=== PATIENT | female | born 1955 | race Caucasian/White ===

== ENCOUNTER 2017-10-25 10:23 | Day surgery (SDC) | payer BC, MEDICARE ==
[~2017-10-25 10:23] MED LIST: ADV50500 INH; ALB0.5UD IH; CALC1TAB41; GLUC-131 PO; IBUP-24 PO; LEVO100T PO; METF500T PO
[2017-10-25] MEDS ORDERED: CELE-193 PO (12:14)
[2017-10-25] MEDS ORDERED: FLUT1AER (12:15)
[2017-10-25] MEDS ORDERED: ACET-2119 PO (12:15)
[2017-10-25] MEDS ORDERED: LIDOcaine 2% 5ml jelly ONE (12:17)
[2017-10-25] MEDS ORDERED: hydrocortisone 1% cream 28gm TP ONE (12:49)
== END 2017-10-25 13:10 | disposition home or self-care (01) ==
LOC: WOUND CARE 10:23
PROVIDERS: ATTEND Surgery
DX: L97.322 Non-pressure chronic ulcer of left ankle with fat layer exposed (principal); I83.023 Varicose veins of left lower extremity with ulcer of ankle
CPT/HCPCS: 73620; 97597; A6021; A6206; A6441

== ENCOUNTER 2017-11-03 10:32 | Day surgery (SDC) | payer BC, MEDICARE ==
[~2017-11-03 10:32] MED LIST changes: +ACET-2119 PO; -CALC1TAB41; +CELE-193 PO; +FLUT1AER; -IBUP-24 PO; -METF500T PO
[2017-11-03] MEDS: LIDOcaine 2% 5ml jelly ONE (11:49)
[2017-11-03] MEDS: hydrocortisone 1% cream 28gm TP ONE (12:42)
== END 2017-11-03 12:41 | disposition home or self-care (01) ==
LOC: WOUND CARE 10:32
PROVIDERS: ATTEND Surgery
DX: L97.322 Non-pressure chronic ulcer of left ankle with fat layer exposed (principal); I83.023 Varicose veins of left lower extremity with ulcer of ankle
CPT/HCPCS: 97597; A6021; A6196; A6206; A6441

== ENCOUNTER 2017-11-10 10:53 | Day surgery (SDC) | payer BC, MEDICARE ==
[2017-11-10] MEDS ORDERED: LIDOcaine 2% 5ml jelly ONE (16:03)
== END 2017-11-10 13:05 | disposition home or self-care (01) ==
LOC: WOUND CARE 10:53
PROVIDERS: ATTEND Surgery
DX: L97.322 Non-pressure chronic ulcer of left ankle with fat layer exposed (principal); I83.023 Varicose veins of left lower extremity with ulcer of ankle; I87.2 Venous insufficiency (chronic) (peripheral)
CPT/HCPCS: 87070; 87075; 87077; 87102; 87176; 87186; 97597; A6021; A6206; A6446

== ENCOUNTER 2017-11-17 11:00 | Day surgery (SDC) | payer BC, MEDICARE ==
[2017-11-17] MEDS ORDERED: LIDOcaine 2% 5ml jelly ONE (11:46)
[2017-11-17] MEDS ORDERED: LEVO750T21 PO (14:36)
== END 2017-11-17 12:50 | disposition home or self-care (01) ==
LOC: WOUND CARE 11:00
PROVIDERS: ATTEND Surgery
DX: L97.322 Non-pressure chronic ulcer of left ankle with fat layer exposed (principal); I83.023 Varicose veins of left lower extremity with ulcer of ankle; I87.2 Venous insufficiency (chronic) (peripheral)
CPT/HCPCS: 97597; A6021; A6206; A6446

== ENCOUNTER 2017-11-24 10:31 | Day surgery (SDC) | payer BC, MEDICARE ==
[~2017-11-24 10:31] MED LIST changes: +LEVO750T21 PO
[2017-11-24] MEDS ORDERED: LIDOcaine/PRILOcaine 5gm cream TP ONE (11:07)
== END 2017-11-24 12:02 | disposition home or self-care (01) ==
LOC: WOUND CARE 10:31
PROVIDERS: ATTEND Surgery
DX: L97.322 Non-pressure chronic ulcer of left ankle with fat layer exposed (principal); I83.023 Varicose veins of left lower extremity with ulcer of ankle; I87.2 Venous insufficiency (chronic) (peripheral)
CPT/HCPCS: 97597; A6021; A6206; A6446

== ENCOUNTER 2017-12-08 10:45 | Day surgery (SDC) | payer BC, MEDICARE ==
[2017-12-08] MEDS ORDERED: LIDOcaine/PRILOcaine 5gm cream TP ONE (12:43)
== END 2017-12-08 13:37 | disposition home or self-care (01) ==
LOC: WOUND CARE 10:45
PROVIDERS: ATTEND Surgery
DX: L97.322 Non-pressure chronic ulcer of left ankle with fat layer exposed (principal); I83.023 Varicose veins of left lower extremity with ulcer of ankle; I87.2 Venous insufficiency (chronic) (peripheral)
CPT/HCPCS: 97597; A6021; A6206; A6222; A6446

== ENCOUNTER 2017-12-15 10:29 | Day surgery (SDC) | payer BC, MEDICARE ==
[2017-12-15] MEDS ORDERED: LIDOcaine/PRILOcaine 5gm cream TP ONE (12:21)
== END 2017-12-15 11:55 | disposition home or self-care (01) ==
LOC: WOUND CARE 10:29
PROVIDERS: ATTEND Surgery
DX: L97.322 Non-pressure chronic ulcer of left ankle with fat layer exposed (principal); I83.023 Varicose veins of left lower extremity with ulcer of ankle; I87.2 Venous insufficiency (chronic) (peripheral)
CPT/HCPCS: 15271; A6209; A6222; Q4101; A6250; A6441

== ENCOUNTER 2017-12-22 10:39 | Outpatient (CLI) | payer BC, MEDICARE | END 2017-12-22 12:19 | disposition home or self-care (01) | LOC: WOUND CARE 10:39 | PROVIDERS: ATTEND Surgery | DX: L97.322 Non-pressure chronic ulcer of left ankle with fat layer exposed (principal); I83.023 Varicose veins of left lower extremity with ulcer of ankle; I87.2 Venous insufficiency (chronic) (peripheral) | CPT/HCPCS: 29581; A6021; A6206; A6441 ==

== ENCOUNTER 2017-12-30 10:06 | Day surgery (SDC) | payer BC, MEDICARE ==
[~2017-12-30 10:06] MED LIST changes: -LEVO750T21 PO
[2017-12-30] MEDS ORDERED: LIDOcaine/PRILOcaine 5gm cream TP ONE (11:11)
[2017-12-30] MEDS ORDERED: hydrocortisone 1% cream 28gm TP ONE (12:10)
== END 2017-12-30 12:19 | disposition home or self-care (01) ==
LOC: WOUND CARE 10:06
PROVIDERS: ATTEND Surgery
DX: L97.322 Non-pressure chronic ulcer of left ankle with fat layer exposed (principal); I83.023 Varicose veins of left lower extremity with ulcer of ankle; I87.2 Venous insufficiency (chronic) (peripheral)
CPT/HCPCS: 15271; A6222; Q4101; A6250; A6441

== ENCOUNTER 2018-01-06 10:41 | Outpatient (CLI) | payer BC, MEDICARE | END 2018-01-06 12:00 | disposition home or self-care (01) | LOC: WOUND CARE 10:41 | PROVIDERS: ATTEND Surgery | DX: L97.322 Non-pressure chronic ulcer of left ankle with fat layer exposed (principal); I83.023 Varicose veins of left lower extremity with ulcer of ankle; I87.2 Venous insufficiency (chronic) (peripheral) | CPT/HCPCS: 29581; A6222; A6441 ==

== ENCOUNTER 2018-01-13 10:26 | Day surgery (SDC) | payer MEDICARE, BC ==
[2018-01-13] MEDS ORDERED: LIDOcaine/PRILOcaine 5gm cream TP ONE (11:16)
[2018-01-13] MEDS ORDERED: hydrocortisone 1% cream 28gm TP ONE (12:05)
== END 2018-01-13 12:17 | disposition home or self-care (01) ==
LOC: WOUND CARE 10:26
PROVIDERS: ATTEND Surgery
DX: L97.322 Non-pressure chronic ulcer of left ankle with fat layer exposed (principal); I83.023 Varicose veins of left lower extremity with ulcer of ankle; I87.2 Venous insufficiency (chronic) (peripheral)
CPT/HCPCS: 15271; A6206; A6209; Q4101; A6250; A6441

== ENCOUNTER 2018-01-20 10:38 | Outpatient (CLI) | payer MEDICARE, BC ==
[2018-01-20] MEDS ORDERED: hydrocortisone 1% cream 28gm TP ONE (11:49)
== END 2018-01-20 12:10 | disposition home or self-care (01) ==
LOC: WOUND CARE 10:38
PROVIDERS: ATTEND Surgery
DX: L97.322 Non-pressure chronic ulcer of left ankle with fat layer exposed (principal); I83.023 Varicose veins of left lower extremity with ulcer of ankle; I87.2 Venous insufficiency (chronic) (peripheral)
CPT/HCPCS: 29581; A6206; A6441

== ENCOUNTER 2018-01-27 10:38 | Outpatient (CLI) | payer MEDICARE, BC | END 2018-01-27 11:31 | disposition home or self-care (01) | LOC: WOUND CARE 10:38 | PROVIDERS: ATTEND Surgery | DX: L97.322 Non-pressure chronic ulcer of left ankle with fat layer exposed (principal); I83.023 Varicose veins of left lower extremity with ulcer of ankle; I87.2 Venous insufficiency (chronic) (peripheral) | CPT/HCPCS: 29581; A6206; A6441 ==

== ENCOUNTER 2018-02-03 10:22 | Day surgery (SDC) | payer MEDICARE, BC ==
[2018-02-03] MEDS ORDERED: LIDOcaine/PRILOcaine 5gm cream TP ONE (11:02)
[2018-02-03] MEDS ORDERED: hydrocortisone 1% cream 28gm TP ONE (16:45)
== END 2018-02-03 12:03 | disposition home or self-care (01) ==
LOC: WOUND CARE 10:22
PROVIDERS: ATTEND Surgery
DX: L97.322 Non-pressure chronic ulcer of left ankle with fat layer exposed (principal); I83.023 Varicose veins of left lower extremity with ulcer of ankle; I87.2 Venous insufficiency (chronic) (peripheral)
CPT/HCPCS: 97597; A6222; A6441

== ENCOUNTER 2018-02-10 10:20 | Day surgery (SDC) | payer MEDICARE, BC ==
[2018-02-10] MEDS ORDERED: LIDOcaine/PRILOcaine 5gm cream TP ONE (11:30)
[2018-02-10] MEDS ORDERED: hydrocortisone 1% cream 28gm TP ONE (12:40)
== END 2018-02-10 12:19 | disposition home or self-care (01) ==
LOC: WOUND CARE 10:20
PROVIDERS: ATTEND Surgery
DX: L97.322 Non-pressure chronic ulcer of left ankle with fat layer exposed (principal); I83.023 Varicose veins of left lower extremity with ulcer of ankle; I87.2 Venous insufficiency (chronic) (peripheral)
CPT/HCPCS: 97597; A6021; A6206; A6212; A6446

== ENCOUNTER 2018-02-24 10:47 | Day surgery (SDC) | payer MEDICARE, BC ==
[2018-02-24] MEDS ORDERED: LIDOcaine/PRILOcaine 5gm cream TP ONE (11:08)
[2018-02-24] MEDS ORDERED: hydrocortisone 1% cream 28gm TP ONE (11:38)
== END 2018-02-24 11:55 | disposition home or self-care (01) ==
LOC: WOUND CARE 10:47
PROVIDERS: ATTEND Surgery
DX: L97.322 Non-pressure chronic ulcer of left ankle with fat layer exposed (principal); I83.023 Varicose veins of left lower extremity with ulcer of ankle; I87.2 Venous insufficiency (chronic) (peripheral)
CPT/HCPCS: 97597; A6021; A6206; A6441

== ENCOUNTER 2018-03-03 10:35 | Day surgery (SDC) | payer MEDICARE, BC ==
[2018-03-03] MEDS ORDERED: LIDOcaine/PRILOcaine 5gm cream TP ONE (11:13)
== END 2018-03-03 11:45 | disposition home or self-care (01) ==
LOC: WOUND CARE 10:35
PROVIDERS: ATTEND Surgery
DX: I83.023 Varicose veins of left lower extremity with ulcer of ankle (principal); L97.322 Non-pressure chronic ulcer of left ankle with fat layer exposed; I87.2 Venous insufficiency (chronic) (peripheral)
CPT/HCPCS: 97597; A6222; A6021

== ENCOUNTER 2018-03-17 10:32 | Outpatient (CLI) | payer MEDICARE, BC | END 2018-03-17 11:50 | disposition home or self-care (01) | LOC: WOUND CARE 10:32 | PROVIDERS: ATTEND Surgery | DX: I83.023 Varicose veins of left lower extremity with ulcer of ankle (principal); L97.322 Non-pressure chronic ulcer of left ankle with fat layer exposed; I87.2 Venous insufficiency (chronic) (peripheral) | CPT/HCPCS: 29581; A6021; A6206; A6441 ==

== ENCOUNTER 2018-03-31 10:28 | Outpatient (CLI) | payer MEDICARE, BC ==
[2018-03-31] MEDS ORDERED: hydrocortisone 1% cream 28gm TP ONE (11:28)
--- NOTE | 2018-03-31 12:00 | NUR ---
Patient ambulated independently from [facility] and was admitted to outpatient wound care for physician visit with Keven Arauz MD. Dressing removed, wound cleanse. Patient assessed for changes in conditions, medications and medical history. 1115 - Dr. Arauz at bedside accompanied by RN. Wound assessed by MD. Plan of care discussed with patient. Dressings placed per MD orders. Pt instructed to elevate legs at least 30 minutes 3 times a day or 10 minutes every 4 hours, also instructed check their toes. If they become purplish or blue, cool to the touch, numb or tingly, use a pair of scissors and carefully cut off the dressing. Call the Wound Center for an appointment to have the dressing reapplied. Pt instructed that decreased swelling in the legs and the potential for drainage from the wound may require them to have to schedule visits twice weekly, progressing to weekly as the swelling decreases in their legs. Pt instructed that if dressings become loose, wrinkled or falls down and if they are experiencing any pain or discomfort under their dressing cut the dressing off and call the Wound Center to have it reapplied. Pt instructed that the wrap needs to be kept dry. They may bath at a sink or there are devices designed to keep dressings dry these are available at most drug stores. If they choose to shower with a plastic bag taped over the wrap. Be sure to having another person available for assistance or placing towels on the floor of the shower or tub to eliminate the slick surface can reduce the risk of falls. Patient instructed on the signs and symptoms of infection and to call the Wound Center if any occur or to go to the ED if we are closed: Increased pain in wound Increase in drainage from the wound Redness in the skin surrounding the wound Bleeding from the wound Temperature of 101 or greater Patient instructed that the weight of their body puts a large amount of pressure on their wounds. This pressure keeps the new tissue from growing and inhibits new blood vessels from forming. Explained that, if they continue to bear weight on a body part that has a wound, the time it takes to heal the wound increases, the wound may get worse or the wound may not heal at all. Patient verbalized understanding of all discharge instructions and plan of care and ambulated independently out to [facility] in stable condition with no sign or symptom of distress at time of discharge.
== END 2018-03-31 11:44 | disposition home or self-care (01) ==
LOC: WOUND CARE 10:28 → EDSTATUS 10:30 → WOUND CARE 11:44
PROVIDERS: ATTEND Surgery
DX: I83.023 Varicose veins of left lower extremity with ulcer of ankle (principal); L97.322 Non-pressure chronic ulcer of left ankle with fat layer exposed; I87.2 Venous insufficiency (chronic) (peripheral)
CPT/HCPCS: 29581; A6021; A6206; A6441

== ENCOUNTER 2018-04-14 10:30 | Outpatient (CLI) | payer MEDICARE, BC ==
--- NOTE | 2018-04-14 12:30 | NUR ---
Patient ambulated independently from [facility] and was admitted to outpatient wound care for physician visit with Keven Arauz MD. Dressing removed, wound cleansed. Patient assessed for changes in conditions, medications and medical history. 1143 - Dr. Arauz at bedside accompanied by RN. Wound assessed by MD and is declared healed. Plan of care discussed with patient. Dressings placed per MD orders. Patient is discharged from the wound center to follow up on an as needed basis. Patient instructed on the signs and symptoms of infection and to call the Wound Center if any occur or to go to the ED if we are closed: Increased pain in wound Increase in drainage from the wound Redness in the skin surrounding the wound Bleeding from the wound Temperature of 101 or greater Patient instructed that the weight of their body puts a large amount of pressure on their wounds. This pressure keeps the new tissue from growing and inhibits new blood vessels from forming. Explained that, if they continue to bear weight on a body part that has a wound, the time it takes to heal the wound increases, the wound may get worse or the wound may not heal at all. Patient verbalized understanding of all discharge instructions and plan of care and ambulated independently out to [facility] in stable condition with no sign or symptom of distress at time of discharge.
== END 2018-04-14 11:55 | disposition home or self-care (01) ==
LOC: WOUND CARE 10:30 → EDSTATUS 10:30 → WOUND CARE 11:55
PROVIDERS: ATTEND Surgery
DX: I83.023 Varicose veins of left lower extremity with ulcer of ankle (principal); L97.322 Non-pressure chronic ulcer of left ankle with fat layer exposed; I87.2 Venous insufficiency (chronic) (peripheral)
CPT/HCPCS: A6021; A6206; A6212; G0463

== ENCOUNTER 2018-10-17 09:50 | Day surgery (SDC) | payer BC, MEDICARE ==
[2018-10-17] MEDS ORDERED: silver sulfadiazine cream 50gm TP ONE (10:29)
[2018-10-17] MEDS ORDERED: nystatin/triamcinolone cream 15gm TP ONE (10:32)
[2018-10-17] MEDS ORDERED: SULF1TAB49 PO (10:49)
--- NOTE | 2018-10-17 10:52 | NUR ---
Patient ambulated independently from [facility] and was admitted to outpatient wound care for new patient physician visit. Dressings removed, wound cleansed. Patient assessment completed with review of patient's medical history and current medications. 1028-Dr. Arauz at bedside accompanied by RN. Wound assessed, time-out performed by MD/RN. Wound debrided as detailed in the physician progress/procedure note. Plan of care discussed with patient. Dressings placed per MD orders. Patient instructed on the signs and symptoms of infection and to call the Wound Center if any occur or to go to the ED if we are closed: Increased pain in the wound Increase in drainage from the wound Redness in the skin surrounding the wound Bleeding from the wound Temperature of 101F or greater Patient instructed that the weight of their body puts a large amount of pressure on their wounds. This pressure keeps the new tissue from growing and inhibits new blood vessels from forming. Explained that, if they continue to bear weight on a body part that has a wound, the time it takes to heal the wound increases, the wound may get worse, or the wound may not heal at all. Patient verbalized understanding of all discharge instructions and plan of care. Patient ambulated independently out to [facility] in stable condition with no signs or symptoms of distress at time of discharge.
== END 2018-10-17 10:55 | disposition home or self-care (01) ==
LOC: WOUND CARE 09:50
PROVIDERS: ATTEND Surgery
DX: I83.023 Varicose veins of left lower extremity with ulcer of ankle (principal); L97.322 Non-pressure chronic ulcer of left ankle with fat layer exposed; I87.2 Venous insufficiency (chronic) (peripheral)
CPT/HCPCS: 87070; 87075; 87077; 87102; 97597; J7999; A4663; A6446

== ENCOUNTER 2018-10-26 11:14 | Day surgery (SDC) | payer OTHER, MEDICARE ==
[~2018-10-26 11:14] MED LIST changes: +SULF1TAB49 PO
[2018-10-26] MEDS ORDERED: hydrocortisone 1% cream 28gm TP ONE (12:42)
--- NOTE | 2018-10-26 15:30 | NUR ---
1100 Patient ambulated safely into [facility]. Patient admitted to outpatient wound care clinic for follow-up visit with physician. Patient placed in isolation per isolation protocol. Dressing removed, wound cleansed. Patient assessed for changes in conditions, medications and medical history. Patient showed no s/s of distress at time of assessment. 1200 at bedside accompanied by RN. Wounds assessed, time out performed and debridement done today as detailed in the physician progress/procedure note. Plan of care discussed with patient. Dressings placed per MD orders. Patient instructed on the signs and symptoms of infection and to call the Wound Center if any occur or to go to the ED if we are closed: Increased pain in wound Increase in drainage from the wound Redness in the skin surrounding the wound Bleeding from the wound Temperature of 101 or greater Patient instructed that the weight of their body puts a large amount of pressure on their wounds. This pressure keeps the new tissue from growing and inhibits new blood vessels from forming. Explained that, if they continue to bear weight on a body part that has a wound, the time it takes to heal the wound increases, the wound may get worse or the wound may not heal at all. Patient verbalized understanding of all discharge instructions and plan of care. Patient ambulated independently out to [facility] and is in stable condition with no sign or symptom of distress at time of discharge.
== END 2018-10-26 12:32 | disposition home or self-care (01) ==
LOC: WOUND CARE 11:14
PROVIDERS: ATTEND Surgery
DX: I83.023 Varicose veins of left lower extremity with ulcer of ankle (principal); L97.321 Non-pressure chronic ulcer of left ankle limited to breakdown of skin; I87.2 Venous insufficiency (chronic) (peripheral)
CPT/HCPCS: 97597; A4663; A6021; A6154; A6446

== ENCOUNTER 2018-11-02 10:50 | Day surgery (SDC) | payer OTHER, MEDICARE ==
[2018-11-02] MEDS ORDERED: LIDOcaine 2% 5ml jelly ONE (12:11)
[2018-11-02] MEDS ORDERED: hydrocortisone 1% cream 28gm TP ONE (12:51)
== END 2018-11-02 13:12 | disposition home or self-care (01) ==
LOC: WOUND CARE 10:50
PROVIDERS: ATTEND Surgery
DX: I83.023 Varicose veins of left lower extremity with ulcer of ankle (principal); L97.321 Non-pressure chronic ulcer of left ankle limited to breakdown of skin; I87.2 Venous insufficiency (chronic) (peripheral); J44.9 Chronic obstructive pulmonary disease, unspecified; Z96.651 Presence of right artificial knee joint
CPT/HCPCS: 97597; A6021; A6154; A6441

== ENCOUNTER 2018-11-09 10:40 | Day surgery (SDC) | payer OTHER, MEDICARE | END 2018-11-09 13:35 | disposition home or self-care (01) | LOC: WOUND CARE 10:40 | PROVIDERS: ATTEND Surgery | DX: I83.023 Varicose veins of left lower extremity with ulcer of ankle (principal); L97.321 Non-pressure chronic ulcer of left ankle limited to breakdown of skin; L03.116 Cellulitis of left lower limb; I87.2 Venous insufficiency (chronic) (peripheral); J44.9 Chronic obstructive pulmonary disease, unspecified; Z96.651 Presence of right artificial knee joint | CPT/HCPCS: 97597 ==

== ENCOUNTER 2018-11-09 10:48 | Day surgery (SDC) | payer OTHER, MEDICARE ==
[2018-11-09] MEDS ORDERED: hydrocortisone 1% cream 28gm TP ONE (13:01)
== END 2018-11-09 13:20 | disposition home or self-care (01) ==
LOC: WOUND CARE 10:48
PROVIDERS: ATTEND Surgery
DX: I83.023 Varicose veins of left lower extremity with ulcer of ankle (principal); L97.321 Non-pressure chronic ulcer of left ankle limited to breakdown of skin; I87.2 Venous insufficiency (chronic) (peripheral); J44.9 Chronic obstructive pulmonary disease, unspecified; Z96.651 Presence of right artificial knee joint
CPT/HCPCS: 97597; A4663; A6021; A6154; A6446

== ENCOUNTER 2018-11-16 10:44 | Day surgery (SDC) | payer OTHER, MEDICARE ==
[2018-11-16] MEDS ORDERED: LIDOcaine 2% 5ml jelly ONE (12:24)
[2018-11-16] MEDS ORDERED: hydrocortisone 1% cream 28gm TP ONE (13:37)
== END 2018-11-16 13:52 | disposition home or self-care (01) ==
LOC: WOUND CARE 10:44
PROVIDERS: ATTEND Surgery
DX: I83.023 Varicose veins of left lower extremity with ulcer of ankle (principal); L97.321 Non-pressure chronic ulcer of left ankle limited to breakdown of skin; L03.116 Cellulitis of left lower limb; I87.2 Venous insufficiency (chronic) (peripheral); J44.9 Chronic obstructive pulmonary disease, unspecified; Z96.651 Presence of right artificial knee joint
CPT/HCPCS: 97597; A4663; A6021; A6154; A6441

== ENCOUNTER 2018-11-22 10:30 | Day surgery (SDC) | payer OTHER, MEDICARE ==
[2018-11-22] MEDS ORDERED: LIDOcaine 2% 5ml jelly ONE ×2 (11:17→11:53)
[2018-11-22] MEDS ORDERED: hydrocortisone 1% cream 28gm TP ONE (11:56)
== END 2018-11-22 12:10 | disposition home or self-care (01) ==
LOC: WOUND CARE 10:30
PROVIDERS: ATTEND Surgery
DX: I83.023 Varicose veins of left lower extremity with ulcer of ankle (principal); L97.321 Non-pressure chronic ulcer of left ankle limited to breakdown of skin; L03.116 Cellulitis of left lower limb; I87.2 Venous insufficiency (chronic) (peripheral); J44.9 Chronic obstructive pulmonary disease, unspecified; Z96.651 Presence of right artificial knee joint
CPT/HCPCS: 87070; 87075; 87102; 87176; 87186; 97597; A4663; A6021; A6154

== ENCOUNTER 2018-11-30 10:33 | Day surgery (SDC) | payer OTHER, MEDICARE ==
[2018-11-30] MEDS ORDERED: LIDOcaine 2% 5ml jelly ONE (11:38)
[2018-11-30] MEDS ORDERED: hydrocortisone 1% cream 28gm TP ONE (13:12)
== END 2018-11-30 13:27 | disposition home or self-care (01) ==
LOC: WOUND CARE 10:33
PROVIDERS: ATTEND Surgery
DX: I83.023 Varicose veins of left lower extremity with ulcer of ankle (principal); L97.321 Non-pressure chronic ulcer of left ankle limited to breakdown of skin; L03.116 Cellulitis of left lower limb; I87.2 Venous insufficiency (chronic) (peripheral); J44.9 Chronic obstructive pulmonary disease, unspecified; Z96.651 Presence of right artificial knee joint
CPT/HCPCS: 15271; A6209; A6222; Q4101; 97597; A4663; A6021; A6154; A6250; A6441

== ENCOUNTER 2018-12-07 10:50 | Outpatient (CLI) | payer OTHER, MEDICARE ==
[2018-12-07] MEDS ORDERED: hydrocortisone 1% cream 28gm TP ONE (12:26)
== END 2018-12-07 12:44 | disposition home or self-care (01) ==
LOC: WOUND CARE 10:50
PROVIDERS: ATTEND Surgery
DX: I83.023 Varicose veins of left lower extremity with ulcer of ankle (principal); L97.321 Non-pressure chronic ulcer of left ankle limited to breakdown of skin; L03.116 Cellulitis of left lower limb; I87.2 Venous insufficiency (chronic) (peripheral); J44.9 Chronic obstructive pulmonary disease, unspecified; Z96.651 Presence of right artificial knee joint
CPT/HCPCS: 29581; A6222; A4663; A6441

== ENCOUNTER 2018-12-21 10:40 | Day surgery (SDC) | payer OTHER, MEDICARE ==
[2018-12-21] MEDS ORDERED: LIDOcaine 2% 5ml jelly ONE (11:26)
[2018-12-21] MEDS ORDERED: hydrocortisone 1% cream 28gm TP ONE (12:18)
== END 2018-12-21 12:30 | disposition home or self-care (01) ==
LOC: WOUND CARE 10:40
PROVIDERS: ATTEND Surgery
DX: I83.023 Varicose veins of left lower extremity with ulcer of ankle (principal); L97.321 Non-pressure chronic ulcer of left ankle limited to breakdown of skin; L03.116 Cellulitis of left lower limb; I87.2 Venous insufficiency (chronic) (peripheral); J44.9 Chronic obstructive pulmonary disease, unspecified; Z96.651 Presence of right artificial knee joint
CPT/HCPCS: 97597; A4663; A6021; A6441

== ENCOUNTER 2018-12-28 10:20 | Outpatient (CLI) | payer OTHER, MEDICARE ==
[2018-12-28] MEDS ORDERED: hydrocortisone 1% cream 28gm TP ONE (12:12)
== END 2018-12-28 12:30 | disposition home or self-care (01) ==
LOC: WOUND CARE 10:20 → EDSTATUS 10:30 → WOUND CARE 12:30
PROVIDERS: ATTEND Surgery
DX: I83.023 Varicose veins of left lower extremity with ulcer of ankle (principal); L97.321 Non-pressure chronic ulcer of left ankle limited to breakdown of skin; L03.116 Cellulitis of left lower limb; I87.2 Venous insufficiency (chronic) (peripheral); J44.9 Chronic obstructive pulmonary disease, unspecified; Z96.651 Presence of right artificial knee joint
CPT/HCPCS: 29581; 93971; A4663; A6021; A6154; A6441

== ENCOUNTER 2019-01-04 10:20 | Day surgery (SDC) | payer OTHER, MEDICARE ==
[2019-01-04] MEDS ORDERED: LIDOcaine 2% 5ml jelly ONE (11:18)
[2019-01-04] MEDS ORDERED: hydrocortisone 1% cream 28gm TP ONE (12:10)
== END 2019-01-04 12:26 | disposition home or self-care (01) ==
LOC: WOUND CARE 10:20
PROVIDERS: ATTEND Surgery
DX: I83.023 Varicose veins of left lower extremity with ulcer of ankle (principal); L97.321 Non-pressure chronic ulcer of left ankle limited to breakdown of skin; L03.116 Cellulitis of left lower limb; I87.2 Venous insufficiency (chronic) (peripheral); J44.9 Chronic obstructive pulmonary disease, unspecified; Z96.651 Presence of right artificial knee joint
CPT/HCPCS: 97597; A4663; A6021; A6154; A6441

== ENCOUNTER 2019-01-11 10:19 | Outpatient (CLI) | payer OTHER, MEDICARE ==
[2019-01-11] MEDS ORDERED: LIDOcaine 2% 5ml jelly ONE (11:00)
[2019-01-11] MEDS ORDERED: hydrocortisone 1% cream 28gm TP ONE (11:40)
== END 2019-01-11 11:51 | disposition home or self-care (01) ==
LOC: WOUND CARE 10:19 → EDSTATUS 10:30 → WOUND CARE 11:51
PROVIDERS: ATTEND Surgery
DX: I83.023 Varicose veins of left lower extremity with ulcer of ankle (principal); L97.321 Non-pressure chronic ulcer of left ankle limited to breakdown of skin; L03.116 Cellulitis of left lower limb; I87.2 Venous insufficiency (chronic) (peripheral); J44.9 Chronic obstructive pulmonary disease, unspecified; Z96.651 Presence of right artificial knee joint
CPT/HCPCS: 29581; A4663; A6021; A6154; A6441

== ENCOUNTER 2019-01-18 10:40 | Outpatient (CLI) | payer OTHER, MEDICARE | END 2019-01-18 12:05 | disposition home or self-care (01) | LOC: WOUND CARE 10:40 | PROVIDERS: ATTEND Surgery | DX: I83.023 Varicose veins of left lower extremity with ulcer of ankle (principal); L97.321 Non-pressure chronic ulcer of left ankle limited to breakdown of skin; L03.116 Cellulitis of left lower limb; I87.2 Venous insufficiency (chronic) (peripheral); J44.9 Chronic obstructive pulmonary disease, unspecified; Z96.651 Presence of right artificial knee joint | CPT/HCPCS: A4663; G0463 ==

== ENCOUNTER 2019-02-17 14:30 | Emergency (ER) | payer OTHER, MEDICARE ==
[~2019-02-17] VITALS: Ht 177.8 cm; Wt 99.0 kg
[2019-02-17 16:28] LABS: BASOPHILS % (AUTO) 0.6 % (0-1); EOSINOPHILS # (AUTO) 0.4 X10'3 (0-0.9); EOSINOPHILS % (AUTO) 7.6 % (0-6); HEMATOCRIT 35.2 % (35.0-45.0); HEMOGLOBIN 11.6 g/dl (12.0-16.0); LYMPHOCYTES # (AUTO) 0.9 X10'3 (1.1-4.8); LYMPHOCYTES % (AUTO) 16.9 % (21-51); MEAN CORPUSCULAR HEMOGLOBIN 28.8 PG (27.0-31.0); MEAN CORPUSCULAR HGB CONC 33.1 g/dL (33.0-36.5); MEAN CORPUSCULAR VOLUME 87.1 FL (78-98); MEAN PLATELET VOLUME 7.5 FL (7.4-10.4); MONOCYTES # (AUTO) 0.5 X10'3 (0-0.9); MONOCYTES % (AUTO) 8.7 % (2-12); NEUTROPHILS # (AUTO) 3.7 X10'3 (1.8-7.7); NEUTROPHILS % (AUTO) 66.2 % (42-75); PLATELET COUNT 363 X10'3 (140-440); RED BLOOD COUNT 4.04 X10'6 (4.20-5.60); RED CELL DISTRIBUTION WIDTH 13.8 % (11.5-14.5); WHITE BLOOD COUNT 5.6 X10'3 (4.5-11.0)
--- NOTE | 2019-02-17 16:29 | NUR ---
Low BP reading with cuff on upper arm, WNL BP reading with cuff on forearm.
[2019-02-17 16:42] LABS: ALANINE AMINOTRANSFERASE 11 U/L (12-78); ALBUMIN 3.2 G/DL (3.4-5.0); ALBUMIN/GLOBULIN RATIO 0.8 (1.1-1.5); ALKALINE PHOSPHATASE 103 IU/L (46-116); ANION GAP 7 (8-16); ASPARTATE AMINO TRANSFERASE 15 U/L (10-37); BILIRUBIN,TOTAL 0.2 MG/DL (0.1-1.0); BLOOD UREA NITROGEN 14 MG/DL (7-18); BUN/CREATININE RATIO 15.2 (6.6-38.0); CALCIUM 8.6 MG/DL (8.5-10.1); CHLORIDE 104 MMOL/L (99-107); CREATININE 0.92 MG/DL (0.40-0.90); GLUCOSE 104 MG/DL (70-104); POTASSIUM 4.2 MMOL/L (3.5-5.1); SODIUM 139 MMOL/L (135-145); TOTAL CARBON DIOXIDE 28.2 MMOL/L (24-32); TOTAL PROTEIN 7.1 G/DL (6.4-8.2); eGFR 61 ML/MIN
[2019-02-17 17:43] VITALS: BP 124/69
[2019-02-17] MEDS ORDERED: DOXY100C43 PO (18:05)
== END 2019-02-17 18:36 | disposition home or self-care (01) ==
LOC: ER 14:30
DX: L03.115 Cellulitis of right lower limb (principal); Z91.010 Allergy to peanuts; Z88.1 Allergy status to other antibiotic agents; Z79.899 Other long term (current) drug therapy
CPT/HCPCS: 36415; 73610; 80053; 85025; 85610; 93926; 93971; 99284

== ENCOUNTER 2019-06-12 15:39 | Outpatient (CLI) | payer OTHER, MEDICARE ==
[~2019-06-12] VITALS: Ht 177.8 cm; Wt 90.7 kg
[2019-06-12] MEDS ORDERED: ROSU5TAB PO (16:33)
[2019-06-12] MEDS ORDERED: GABA600T PO ×2 (16:36→16:45)
[2019-06-12] MEDS ORDERED: DULO-31 PO (16:36)
[2019-06-12] MEDS ORDERED: CHOL500061 PO (16:45)
[2019-06-12 16:57] LABS: BASOPHILS # (AUTO) 0.1 X10'3 (0-0.2); EOSINOPHILS # (AUTO) 0.5 X10'3 (0-0.9); EOSINOPHILS % (AUTO) 7.8 % (0-6); LYMPHOCYTES # (AUTO) 1.7 X10'3 (1.1-4.8); LYMPHOCYTES % (AUTO) 24.2 % (21-51); MEAN CORPUSCULAR HEMOGLOBIN 28.5 PG (27.0-31.0); MEAN CORPUSCULAR HGB CONC 33.2 g/dL (33.0-36.5); MEAN PLATELET VOLUME 7.9 FL (7.4-10.4); MONOCYTES # (AUTO) 0.5 X10'3 (0-0.9); NEUTROPHILS # (AUTO) 4.2 X10'3 (1.8-7.7); PRE OP HEMATOCRIT 37.3 % (35.0-45.0); PRE OP HEMOGLOBIN 12.4 g/dL (12.0-16.0); PRE OP PLATELET COUNT 374 X10'3 (140-440); RED BLOOD COUNT 4.34 X10'6 (4.20-5.60); RED CELL DISTRIBUTION WIDTH 15.2 % (11.5-14.5)
[2019-06-12 17:13] LABS: ALBUMIN 3.7 G/DL (3.4-5.0); ALBUMIN/GLOBULIN RATIO 0.9 (1.1-1.5); ALKALINE PHOSPHATASE 101 IU/L (46-116); BLOOD UREA NITROGEN 13 MG/DL (7-18); BUN/CREATININE RATIO 13.1 (6.6-38.0); CALCIUM 9.1 MG/DL (8.5-10.1); CHLORIDE 107 MMOL/L (99-107); CREATININE 0.99 MG/DL (0.40-0.90); PRE OP ALT 20 U/L (30-65); PRE OP ANION GAP 6 (8-16); PRE OP AST 17 U/L (10-37); PRE OP BILIRUB, TOTAL 0.2 MG/DL (0.0-1.0); PRE OP GLUCOSE 98 MG/DL (70-104); PRE OP POTASSIUM 4.4 MMOL/L (3.4-5.1); PRE OP SODIUM 142 MMOL/L (135-145); TOTAL CARBON DIOXIDE 28.9 MMOL/L (24-32); TOTAL PROTEIN 7.8 G/DL (6.4-8.2); eGFR 56 ML/MIN
[2019-06-19] MEDS ORDERED: famotidine 20mg tablet PO ONE (10:15)
[2019-06-19] MEDS ORDERED: ringers solution, lacted 1,000 ML IV SCH (10:15)
== END 2019-06-12 23:59 | disposition home or self-care (01) ==
LOC: PRE-OP 15:39 → EDSTATUS 06-19 12:15
PROVIDERS: ATTEND Orthopaedic Surgery
DX: Z01.818 Encounter for other preprocedural examination (principal); J98.4 Other disorders of lung; M17.12 Unilateral primary osteoarthritis, left knee
CPT/HCPCS: 36415; 71046; 80053; 84443; 85025; 86885; 86900; 86901; 87081

== ENCOUNTER 2019-06-16 13:51 | Emergency (ER) | payer OTHER, MEDICARE ==
[~2019-06-16] VITALS: Ht 177.8 cm; Wt 100.0 kg
[~2019-06-16 13:51] MED LIST changes: -ACET-2119 PO; -ADV50500 INH; -CELE-193 PO; +CHOL500061 PO; +DULO-31 PO; +GABA600T PO; -GLUC-131 PO; +ROSU5TAB PO; -SULF1TAB49 PO
[2019-06-16 13:52] VITALS: BP 186/81
[2019-06-16] MEDS ORDERED: ALBU8HFA PO (14:33)
[2019-06-16] MEDS ORDERED: AZIT-31 PO (14:33)
== END 2019-06-16 14:53 | disposition home or self-care (01) ==
LOC: ER 13:52
DX: B34.9 Viral infection, unspecified (principal); J44.1 Chronic obstructive pulmonary disease with (acute) exacerbation; Z88.1 Allergy status to other antibiotic agents; Z91.010 Allergy to peanuts; Z79.899 Other long term (current) drug therapy
CPT/HCPCS: 71045; 99283

== ENCOUNTER 2019-06-23 14:50 | Emergency (ER) | payer OTHER, MEDICARE ==
[~2019-06-23] VITALS: Ht 177.8 cm; Wt 91.0 kg
[2019-06-23 14:50] VITALS: BP 140/85
[~2019-06-23 14:50] MED LIST changes: +ALBU8HFA PO
[2019-06-23] MEDS ORDERED: PRED20TA PO (15:21)
[2019-06-23] MEDS ORDERED: DOXY100C76 PO (15:21)
== END 2019-06-23 15:34 | disposition home or self-care (01) ==
LOC: ER 14:50
DX: J44.1 Chronic obstructive pulmonary disease with (acute) exacerbation (principal); Z79.899 Other long term (current) drug therapy; Z91.010 Allergy to peanuts; Z88.1 Allergy status to other antibiotic agents
CPT/HCPCS: 99284

== ENCOUNTER 2019-10-23 05:59 | Observation (INO) | payer OTHER, MEDICARE ==
[2019-10-16 15:43] LABS: BASOPHILS # (AUTO) 0.1 X10'3 (0-0.2); BASOPHILS % (AUTO) 1.1 % (0-1); EOSINOPHILS # (AUTO) 0.4 X10'3 (0-0.9); EOSINOPHILS % (AUTO) 7.8 % (0-6); LYMPHOCYTES # (AUTO) 0.9 X10'3 (1.1-4.8); LYMPHOCYTES % (AUTO) 16.4 % (21-51); MEAN CORPUSCULAR HEMOGLOBIN 28.8 PG (27.0-31.0); MEAN CORPUSCULAR HGB CONC 32.6 g/dL (33.0-36.5); MEAN CORPUSCULAR VOLUME 88.3 FL (78-98); MEAN PLATELET VOLUME 7.6 FL (7.4-10.4); MONOCYTES # (AUTO) 0.5 X10'3 (0-0.9); MONOCYTES % (AUTO) 9.1 % (2-12); NEUTROPHILS # (AUTO) 3.7 X10'3 (1.8-7.7); NEUTROPHILS % (AUTO) 65.6 % (42-75); PRE OP HEMATOCRIT 39.4 % (35.0-45.0); PRE OP HEMOGLOBIN 12.9 g/dL (12.0-16.0); PRE OP PLATELET COUNT 400 X10'3 (140-440); RED BLOOD COUNT 4.46 X10'6 (4.20-5.60); RED CELL DISTRIBUTION WIDTH 14.2 % (11.5-14.5)
[2019-10-16 16:06] LABS: ALBUMIN 3.5 G/DL (3.4-5.0); ALBUMIN/GLOBULIN RATIO 0.8 (1.1-1.5); ALKALINE PHOSPHATASE 104 IU/L (46-116); BLOOD UREA NITROGEN 15 MG/DL (7-18); BUN/CREATININE RATIO 15.2 (6.6-38.0); CALCIUM 8.7 MG/DL (8.5-10.1); CHLORIDE 104 MMOL/L (99-107); CREATININE 0.99 MG/DL (0.40-0.90); PRE OP ALT 22 U/L (30-65); PRE OP ANION GAP 10 (8-16); PRE OP AST 18 U/L (10-37); PRE OP BILIRUB, TOTAL 0.4 MG/DL (0.0-1.0); PRE OP GLUCOSE 91 MG/DL (70-104); PRE OP POTASSIUM 3.9 MMOL/L (3.4-5.1); PRE OP SODIUM 140 MMOL/L (135-145); TOTAL CARBON DIOXIDE 26.4 MMOL/L (24-32); TOTAL PROTEIN 7.8 G/DL (6.4-8.2); eGFR 56 ML/MIN
[2019-10-23] VITALS (17 sets, daily range): BP systolic 90–120; BP diastolic 49–78
[~2019-10-23] VITALS: Ht 177.8 cm; Wt 103.8 kg
[~2019-10-23 05:59] MED LIST changes: -ALB0.5UD IH; -ALBU8HFA PO; +ALBUTEROL INH; -FLUT1AER; +FLUT1AER INH; -LEVO100T PO; +LEVO112T52 PO; +MESSAGE TO NURSING IV ONE; +acetaminophen 325mg tablet PO ONE; +albuterol 2.5 MG/3 ML nebule NEB ONE; +celeCOXIB 100mg capsule PO ONE; +famotidine 20mg tablet PO ONE; +gabapentin 300mg capsule PO ONE; +metoclopramide 5 mg/ml inj IV ONE; +oxyCODONE SR 10mg (sust. release) tab -2 tabs (20mg) PO ONE; +ringers solution, lacted 1,000 ML IV SCH; +tranexamic acid 1gm/0.7% sal. 100 ML IV ONE; +vancomycin 1,500 MG in NS 300ml IV soln IV ONE
[2019-10-23] MEDS ORDERED: cloNIDine hcl/PF 100mcg/ml inj ONE (06:49)
[2019-10-23] MEDS ORDERED: ketorolac trometh. 30mg/ml inj. ONE (06:49)
[2019-10-23] MEDS ORDERED: ROPIVAcaine 0.5% (5mg/ml) 30ml vial ONE (06:49)
[2019-10-23] MEDS ORDERED: vancomycin 1,000mg inj ONE (06:49)
[2019-10-23] MEDS ORDERED: epiNEPHrine 1 mg/ml inj ONE (06:49)
[2019-10-23] MEDS ORDERED: HYDROmorphone 1 mg/ml syringe IV PRN (07:05)
[2019-10-23] MEDS ORDERED: magnesium hydroxide 30ml (MOM) UD suspension PO PRN (07:05)
[2019-10-23] MEDS ORDERED: acetaminophen 325mg tablet PO PRN (07:05)
[2019-10-23] MEDS ORDERED: bisacodyl 10mg suppository rectal RC PRN (07:05)
[2019-10-23] MEDS ORDERED: diphenhydrAMINE 25mg capsule PO PRN ×2 (07:05)
[2019-10-23] MEDS ORDERED: ondansetron/PF 4mg/2ml inj IV PRN ×2 (07:05→08:45)
[2019-10-23] MEDS ORDERED: HYDROmorphone inj. 0.5 MG/0.5 ML DISP.SYRIN IV PRN (07:05)
[2019-10-23] MEDS ORDERED: ringers solution, lacted 1,000 ML IV SCH (08:41)
[2019-10-23] MEDS ORDERED: fentaNYL/PF 50MCG/1 ML 2ML syringe ONE (08:44)
[2019-10-23] MEDS ORDERED: MIDAZolam 1mg/ml 10ml vial ONE (08:44)
[2019-10-23] MEDS ORDERED: fentaNYL/PF 50MCG/1 ML 2ML syringe IV PRN ×2 (08:45)
[2019-10-23] MEDS ORDERED: morphine 4 MG/ML inj SYRINge IV PRN (08:45)
[2019-10-23] MEDS ORDERED: hydrALAZINE 20mg/ml inj. IV PRN (08:45)
[2019-10-23] MEDS ORDERED: morphine 2 MG/ML inj. syringe IV PRN (08:45)
[2019-10-23] MEDS ORDERED: labetalol 20mg/4ml (5mg/ml) syringe IV PRN (08:45)
[2019-10-23] MEDS ORDERED: ROPIVAcaine 0.2% (10 MG/5 ML) BOLUS INJECTION ADDCANAL PRN (09:35)
[2019-10-23] MEDS ORDERED: dexamethasone sod phosphate 4mg/ml inj. ONE (09:50)
--- NOTE | 2019-10-23 10:49 | NUR ---
Received from OR via [facility] BED WITH REVA , accompanied by Anesthesiologist ATTILA and report given by Anesthesiolgist. PATIENT WITH 18G PIV IN RIGHT UE RUNNING LR AT 100. VSSArina OCONNOR FOR LOW BODY TEMPERATURE. WILL CONTINUE TO ASSEES. LEFT KNEE WRAP IS CDI WITH NERVE BLOCK SITE AND ARAMIS VAC. + DP. 10L MASK ON WITH 100% SATURATIONS. Addendum: 10/23/19 at 1118 by Acosta Diaz RN, RN Amended: Links added.
[2019-10-23] MEDS: ROPIVAcaine 0.2%/PF PUMP/bolus 550 ML ADDCANAL SCH (11:30)
--- NOTE | 2019-10-23 11:49 | NUR ---
PATIENT TAKEN TO WITH ALL BELONGINGS AND HOOKED UP TO MONITORS IN ROOM AND REPORT GIVEN TO RN WHO HAS TAKEN OVER PATIENT CARE. BED LOW, CALL LIGHT IN REACH, VSS, DRESSINGS CDI. MORE MEADE PRESENT TO ACCEPT CARE . Addendum: 10/23/19 at 1210 by Acosta Diaz RN, RN Amended: Links added.
[2019-10-23] MEDS: potassium cl 20mEq in 1/2 NS 1,000 ML IV SCH ×3 (12:20→23:04)
[2019-10-23] MEDS ORDERED: tranexamic acid 1gm/0.7% sal. 100 ML IV ONE (14:00)
[2019-10-23] MEDS ORDERED: cefazolin/dext.iso 2gm/50ml 50 ML IV SCH (16:00)
[2019-10-23] MEDS ORDERED: CLINDAmcin 900mg/NS 50ml IVPB 50 ML IV ONE (16:00)
--- NOTE | 2019-10-23 18:05 | NUR ---
Patient in room ORTHO 4017. I have received report from MORE Quick and had the opportunity to ask questions and assume patient care.
[2019-10-23] MEDS: gabapentin 300mg capsule PO SCH ×2 (19:20→21:06)
[2019-10-23] MEDS: duloxetine 30mg CAPSULE.DR PO SCH (19:21)
[2019-10-23] MEDS: ascorbic acid 500mg tablet PO SCH (19:21)
[2019-10-23] MEDS ORDERED: VANCOMYCIN 1,500MG inj. 1,500 MG in normal saline 500ml IV soln 300 ML IV SCH (20:00)
[2019-10-23] MEDS: albuterol 2.5 MG/3 ML nebule NEB SCH (20:20)
[2019-10-23] MEDS: budesonide 0.5mg/2ml UD nebule IH SCH (20:21)
[2019-10-23] MEDS: sennosides 8.6mg tablet PO SCH (21:05)
[2019-10-24 02:00] VITALS: BP 117/57
[2019-10-24] MEDS: albuterol 2.5 MG/3 ML nebule NEB SCH ×4 (02:00→20:36)
[2019-10-24] MEDS: potassium cl 20mEq in 1/2 NS 1,000 ML IV SCH ×3 (05:14→23:04)
[2019-10-24] MEDS: oxyCODONE/APAP 10/325mg tablet PO PRN ×4 (05:15→21:51)
[2019-10-24 06:00] VITALS: BP 103/67
--- NOTE | 2019-10-24 06:26 | NUR ---
Problems reprioritized. Patient report given, questions answered & plan of care reviewed with MORE Sharpe.
[2019-10-24 06:55] LABS: BASOPHILS # (AUTO) 0.1 X10'3 (0-0.2); BASOPHILS % (AUTO) 0.9 % (0-1); EOSINOPHILS # (AUTO) 0.1 X10'3 (0-0.9); EOSINOPHILS % (AUTO) 1.1 % (0-6); HEMATOCRIT 31.5 % (35.0-45.0); HEMOGLOBIN 10.2 g/dl (12.0-16.0); LYMPHOCYTES # (AUTO) 0.8 X10'3 (1.1-4.8); LYMPHOCYTES % (AUTO) 11.1 % (21-51); MEAN CORPUSCULAR HEMOGLOBIN 28.5 PG (27.0-31.0); MEAN CORPUSCULAR HGB CONC 32.4 g/dL (33.0-36.5); MEAN CORPUSCULAR VOLUME 88.1 FL (78-98); MONOCYTES # (AUTO) 0.7 X10'3 (0-0.9); MONOCYTES % (AUTO) 10.4 % (2-12); NEUTROPHILS # (AUTO) 5.5 X10'3 (1.8-7.7); NEUTROPHILS % (AUTO) 76.5 % (42-75); PLATELET COUNT 285 X10'3 (140-440); RED BLOOD COUNT 3.57 X10'6 (4.20-5.60); WHITE BLOOD COUNT 7.2 X10'3 (4.5-11.0)
[2019-10-24 07:14] LABS: ANION GAP 9 (8-16); CHLORIDE 106 MMOL/L (99-107); POTASSIUM 4.3 MMOL/L (3.5-5.1); SODIUM 139 MMOL/L (135-145); TOTAL CARBON DIOXIDE 24.2 MMOL/L (24-32)
[2019-10-24] MEDS: budesonide 0.5mg/2ml UD nebule IH SCH ×2 (07:15→20:36)
[2019-10-24] MEDS: gabapentin 300mg capsule PO SCH ×5 (07:53→22:59)
[2019-10-24] MEDS: aspirin 325mg tablet PO SCH (07:54)
[2019-10-24] MEDS: ascorbic acid 500mg tablet PO SCH ×2 (07:54→21:16)
[2019-10-24] MEDS: duloxetine 30mg CAPSULE.DR PO SCH ×2 (07:54→21:17)
[2019-10-24] MEDS: atorvastatin 20mg tablet PO SCH (07:54)
[2019-10-24] MEDS: multivitamins, therapeutics tablet PO SCH (07:54)
[2019-10-24] MEDS: levoTHYROXINE 112mcg tablet PO SCH (07:54)
[2019-10-24 10:00] VITALS: BP 109/46
--- NOTE | 2019-10-24 11:05 | NUR ---
Spoke with patient. MD Love told patient this morning that he would put the discharge orders in but can stay another night. Patient was also not cleared by PT to go home.
--- NOTE | 2019-10-24 11:10 | NUR ---
Joint replacement consult: Pt PO 100% first regular diet meal. LBM 10/22. Labs WNL, and BMI 33 standing scale. No nutrition concerns at this time. Addendum: 10/24/19 at [address] Amended: Links added.
[2019-10-24 14:32] VITALS: BP 103/47
--- NOTE | 2019-10-24 15:27 | NUR ---
Patient does not want to be connected to IV fluids anymore, states she is urinating too often. Patient is tolerating/ drinking plenty of fluids.
[2019-10-24 18:00] VITALS: BP 129/58
--- NOTE | 2019-10-24 18:25 | NUR ---
Problems reprioritized. Patient report given, questions answered & plan of care reviewed with Waleska AGUERO .
[2019-10-24] MEDS: sennosides 8.6mg tablet PO SCH (21:17)
[2019-10-24] MEDS: celeCOXIB 100mg capsule PO SCH (21:28)
[2019-10-24 22:00] VITALS: BP 105/52
[2019-10-24] MEDS: ROPIVAcaine 0.2%/PF PUMP/bolus 550 ML ADDCANAL SCH (22:57)
[2019-10-25] MEDS: albuterol 2.5 MG/3 ML nebule NEB SCH ×2 (02:00→08:04)
[2019-10-25] MEDS: oxyCODONE/APAP 10/325mg tablet PO PRN ×3 (02:04→11:29)
[2019-10-25 06:00] VITALS: BP 134/50
[2019-10-25 06:25] LABS: BASOPHILS # (AUTO) 0.1 X10'3 (0-0.2); BASOPHILS % (AUTO) 1.2 % (0-1); EOSINOPHILS # (AUTO) 0.4 X10'3 (0-0.9); EOSINOPHILS % (AUTO) 6.8 % (0-6); HEMATOCRIT 31.3 % (35.0-45.0); HEMOGLOBIN 10.2 g/dl (12.0-16.0); LYMPHOCYTES % (AUTO) 16.8 % (21-51); MEAN CORPUSCULAR HGB CONC 32.5 g/dL (33.0-36.5); MONOCYTES # (AUTO) 0.8 X10'3 (0-0.9); MONOCYTES % (AUTO) 12.5 % (2-12); NEUTROPHILS # (AUTO) 3.8 X10'3 (1.8-7.7); NEUTROPHILS % (AUTO) 62.7 % (42-75); PLATELET COUNT 286 X10'3 (140-440); RED BLOOD COUNT 3.52 X10'6 (4.20-5.60); RED CELL DISTRIBUTION WIDTH 14.2 % (11.5-14.5)
[2019-10-25] MEDS: duloxetine 30mg CAPSULE.DR PO SCH (07:52)
[2019-10-25] MEDS: multivitamins, therapeutics tablet PO SCH (07:53)
[2019-10-25] MEDS: ascorbic acid 500mg tablet PO SCH (07:53)
[2019-10-25] MEDS: aspirin 325mg tablet PO SCH (07:53)
[2019-10-25] MEDS: celeCOXIB 100mg capsule PO SCH (07:53)
[2019-10-25] MEDS: atorvastatin 20mg tablet PO SCH (07:53)
[2019-10-25] MEDS: gabapentin 300mg capsule PO SCH ×2 (07:53→11:29)
[2019-10-25] MEDS: levoTHYROXINE 112mcg tablet PO SCH (07:53)
[2019-10-25] MEDS: budesonide 0.5mg/2ml UD nebule IH SCH (08:04)
[2019-10-25 10:00] VITALS: BP 105/61
--- NOTE | 2019-10-25 10:57 | NUR ---
Spoke with MD Love about increased in drainage found on the ARAMIS dressing and the new blister noted on the right of the incision, received orders to change the dressing and reinforce with an driss bandage. MD Love stated to send patient home after dressing change and instruct patient to call him if bleeding increases.
--- NOTE | 2019-10-25 12:30 | NUR ---
Patient ready for D/C. Belongings gathered and sent home with patient. PIV removed, cannula intact. ARAMIS dressing was changed and reinforced with an driss bandage. Provided patient with education and calling doctor Miles if bleeding starts again. Patient had medications at home.
== END 2019-10-25 12:30 | disposition home or self-care (01) ==
LOC: PAS 05:59 → ORTHO 4S 07:08
PROVIDERS: ADMIT Orthopaedic Surgery; ATTEND Orthopaedic Surgery
DX: Z03.818 Encounter for observation for suspected exposure to other biological agents ruled out (principal); M17.12 Unilateral primary osteoarthritis, left knee; E66.01 Morbid (severe) obesity due to excess calories; Z79.899 Other long term (current) drug therapy; Z68.32 Body mass index [BMI] 32.0-32.9, adult
CPT/HCPCS: 27447; 36415; 73560; 80051; 80053; 82948; 84443; 85025; 85610; 85730; 86870; 86885; 86900; 86901; 87081; 93005; 94640; 94760; 96365; 96366; 96367; 96375; 97110; 97116; 97161; 97530; A6454; C1713; C1776; G0378; J0171; J0735; J1100; J1885; J2250; J2765; J2795; J3010; J3370; J7040; J7120; U0003; 86902; 86905; A4215; A7000; J3480; J3490; J7626

== ENCOUNTER 2020-04-04 10:44 | Outpatient (CLI) | payer OTHER, MEDICARE ==
[~2020-04-04 10:44] MED LIST changes: -MESSAGE TO NURSING IV ONE; -acetaminophen 325mg tablet PO ONE; -albuterol 2.5 MG/3 ML nebule NEB ONE; -celeCOXIB 100mg capsule PO ONE; -famotidine 20mg tablet PO ONE; -gabapentin 300mg capsule PO ONE; -metoclopramide 5 mg/ml inj IV ONE; -oxyCODONE SR 10mg (sust. release) tab -2 tabs (20mg) PO ONE; -ringers solution, lacted 1,000 ML IV SCH; -tranexamic acid 1gm/0.7% sal. 100 ML IV ONE; -vancomycin 1,500 MG in NS 300ml IV soln IV ONE
[2020-04-04] MEDS ORDERED: LIDOcaine 2% 5ml jelly ONE (11:09)
== END 2020-04-04 23:59 | disposition home or self-care (01) ==
LOC: WOUND CARE 10:44
PROVIDERS: ATTEND Nurse Practitioner
DX: I70.243 Atherosclerosis of native arteries of left leg with ulceration of ankle (principal); L97.322 Non-pressure chronic ulcer of left ankle with fat layer exposed; E78.5 Hyperlipidemia, unspecified; E03.9 Hypothyroidism, unspecified; M19.90 Unspecified osteoarthritis, unspecified site; I87.2 Venous insufficiency (chronic) (peripheral); J44.9 Chronic obstructive pulmonary disease, unspecified; E07.9 Disorder of thyroid, unspecified; E66.01 Morbid (severe) obesity due to excess calories; M17.12 Unilateral primary osteoarthritis, left knee; Z79.899 Other long term (current) drug therapy; Z96.651 Presence of right artificial knee joint; Z68.25 Body mass index [BMI] 25.0-25.9, adult
CPT/HCPCS: 11042; 11045

== ENCOUNTER 2021-02-21 19:02 | Emergency (ER) | payer MEDICARE, BC ==
[~2021-02-21] VITALS: Ht 177.8 cm; Wt 81.8 kg
[2021-02-21 19:31] VITALS: BP 133/73
[2021-02-21] MEDS ORDERED: ketorolac tromethamine 15mg/ml inj. IM ONE (20:45)
[2021-02-21] MEDS ORDERED: ketorolac trometh. 30mg/ml inj. IM ONE (20:50)
[2021-02-21] MEDS ORDERED: morphine 2 MG/ML inj. syringe IM ONE (22:00)
[2021-02-21] MEDS ORDERED: ondansetron 4mg rapidly disintigrating tab PO ONE (22:00)
[2021-02-21] MEDS ORDERED: HYDR-3965 PO (22:30)
[2021-02-21] MEDS ORDERED: WALKERFR (23:08)
== END 2021-02-21 23:26 | disposition home or self-care (01) ==
LOC: ER 19:02
DX: S32.059A Unspecified fracture of fifth lumbar vertebra, initial encounter for closed fracture (principal); R53.1 Weakness; R39.81 Functional urinary incontinence; E05.00 Thyrotoxicosis with diffuse goiter without thyrotoxic crisis or storm; J44.9 Chronic obstructive pulmonary disease, unspecified; Z88.1 Allergy status to other antibiotic agents; Z91.010 Allergy to peanuts; Z79.899 Other long term (current) drug therapy; X58.XXXA Exposure to other specified factors, initial encounter; Y93.89 Activity, other specified; Y92.89 Other specified places as the place of occurrence of the external cause; Y99.8 Other external cause status
CPT/HCPCS: 72131; 96372; 99284; J1885; J2270

== ENCOUNTER 2021-08-26 14:20 | Emergency (ER) | payer MEDICARE, BC ==
[~2021-08-26] VITALS: Ht 177.8 cm; Wt 81.8 kg
[~2021-08-26 14:20] MED LIST changes: +WALKERFR
[2021-08-26 14:28] VITALS: BP 122/62
[2021-08-26] MEDS ORDERED: DOXY100C76 PO (16:34)
== END 2021-08-26 16:49 | disposition home or self-care (01) ==
LOC: ER 14:20
DX: T80.211D Bloodstream infection due to central venous catheter, subsequent encounter (principal); J44.9 Chronic obstructive pulmonary disease, unspecified; Z88.1 Allergy status to other antibiotic agents; Z91.010 Allergy to peanuts; Z79.899 Other long term (current) drug therapy; X58.XXXD Exposure to other specified factors, subsequent encounter
CPT/HCPCS: 71045; 99283

== ENCOUNTER 2023-06-16 20:34 | Emergency (ER) | payer MEDICARE, BC ==
[~2023-06-16] VITALS: Ht 177.8 cm; Wt 93.8 kg
[2023-06-16 20:45] VITALS: BP 107/77; PULSE 89; RESP 17; TEMP 98.3; O2SAT 96
== END 2023-06-17 02:06 | disposition left against medical advice (07) ==
LOC: ER 20:35
DX: L03.116 Cellulitis of left lower limb (principal); Z53.21 Procedure and treatment not carried out due to patient leaving prior to being seen by health care provider
CPT/HCPCS: 99281